=== PATIENT | female | born 1965 | race Caucasian/White ===

== ENCOUNTER 2020-07-12 11:26 | Observation (INO) ==
[2020-07-12] MEDS ORDERED: Ondansetron 4 MG/2 ML VIAL IVP ONE (11:50)
[2020-07-12] MEDS ORDERED: Isovue-370 500 ML BOTTLE IVP ONE (11:52)
[2020-07-12 12:05] LABS: Basophils % 0.5 %; Eosinophils # 0.4 K/mcL (0.0-0.6); Eosinophils % 4.5 %; Hematocrit 47.5 % (35.3-44.9); Hemoglobin 15.1 g/dL (11.5-15.4); Immature Granulocytes % 0.4 % (0-4); Lymphocytes # 1.3 K/mcL (0.6-4.6); Lymphocytes % 16.2 %; Mean Corpuscular HGB Conc 31.8 g/dL (31.6-35.5); Mean Corpuscular Hemoglobin 28.5 pg (28.0-33.3); Mean Corpuscular Volume 89.6 fL (83.0-100.0); Mean Platelet Volume 8.8 fL (9.4-12.4); Monocytes # 0.5 K/mcL (0.0-1.3); Monocytes % 5.7 %; Neutrophils # 5.7 K/mcL (1.6-8.9); Platelet Count 283 K/mcL (140-400); Segmented Neutrophils % 72.7 %; White Blood Count 7.8 K/mcL (4.3-11.1)
[2020-07-12] MEDS: 0.9 % Sodium Chloride 1,000 ML IVC SCH (12:16)
[2020-07-12 12:28] LABS: BUN/Creatinine Ratio 18 (6-26); Blood Urea Nitrogen 14 mg/dL (6-20); Calcium 9.6 mg/dL (8.6-10.3); Carbon Dioxide 26 mEq/L (23-29); Chloride 102 mEq/L (98-107); Glucose 102 mg/dL (70-105); Magnesium 2.4 mg/dL (1.6-2.6); Osmolality,Calculated 281 (280-300); Potassium 4.1 mEq/L (3.5-5.1); Sodium 135 mEq/L (136-145); Troponin I < 0.03 ng/mL (< 0.04); eGFR For African Americans > 60 (> 60); eGFR For Non-African Americans > 60 (> 60)
[2020-07-12 12:41] LABS: Thyroid Stimulating Hormone 0.905 mcIU/mL (0.340-5.600)
[2020-07-12 13:08] LABS: Bilirubin,Urine Negative (Negative); Blood,Urine Negative (Negative); Clarity,Urine Clear (Clear); Color,Urine Light-Yellow (Yellow); Glucose,Urine (UA) Normal (Normal); Ketones,Urine Negative (Negative); Leukocyte Esterase,Urine Negative (Negative); Nitrite,Urine Negative (Negative); PH,Urine 7.5 pH Units (5.0-8.0); Protein,Urine Trace mg/dL (Neg-Trace)
[2020-07-12] MEDS ORDERED: Aspirin 81 MG TAB.CHEW PO STA (14:31)
[2020-07-12] MEDS ORDERED: Ondansetron 4 MG/2 ML VIAL IVP PRN (15:43)
[2020-07-12] MEDS ORDERED: Naloxone 0.4 MG/ML INJ IVP PRN (15:43)
[2020-07-12 16:07] LABS: Chol/HDL Ratio 3.5 (0-4.9); Cholesterol 152 mg/dL (< 200); HDL Cholesterol 44 mg/dL (40-59); LDL Cholesterol,Calculated 86 mg/dL (< 100); Triglycerides 109 mg/dL (< 150)
[2020-07-12] MEDS ORDERED: Perflutren Lipid Microsphere 1.3 ML in 0.9 % Sodium Chloride 8.7 ML IVP PRN (16:25)
[2020-07-12] MEDS: Famotidine 20 MG TABLET PO SCH (20:14)
[2020-07-12] MEDS: Acetaminophen 325 MG TABLET PO PRN (23:08)
[2020-07-13] MEDS: 0.9 % Sodium Chloride 1,000 ML IVC SCH ×4 (00:13→21:15)
[2020-07-13 00:46] LABS: Hematocrit 41.4 % (35.3-44.9); Mean Corpuscular HGB Conc 31.9 g/dL (31.6-35.5); Mean Corpuscular Hemoglobin 28.4 pg (28.0-33.3); Mean Platelet Volume 8.9 fL (9.4-12.4); Platelet Count 245 K/mcL (140-400); Red Blood Count 4.65 M/mcL (3.82-4.97); Red Cell Distribution Width 12.9 % (11.5-14.5); White Blood Count 7.5 K/mcL (4.3-11.1)
[2020-07-13 00:50] LABS: INR 1.1; Prothrombin Time 13.1 Seconds (9.4-12.1)
[2020-07-13 00:52] LABS: Activated Partial Thrombo Time 30.9 Seconds (26.0-36.0); Hemoglobin 13.2 g/dL (11.5-15.4)
[2020-07-13 01:00] LABS: BUN/Creatinine Ratio 16 (6-26); Blood Urea Nitrogen 13 mg/dL (6-20); Carbon Dioxide 29 mEq/L (23-29); Chloride 104 mEq/L (98-107); Glucose 127 mg/dL (70-105); Osmolality,Calculated 286 (280-300); Potassium 4.2 mEq/L (3.5-5.1); Sodium 137 mEq/L (136-145); eGFR For African Americans > 60 (> 60); eGFR For Non-African Americans > 60 (> 60)
[2020-07-13 03:50] LABS: Estimated Average Glucose 91 mg/dl; Hemoglobin A1C 4.8 %
[2020-07-13] MEDS: Acetaminophen 325 MG TABLET PO PRN ×2 (07:58→19:00)
[2020-07-13] MEDS: Aspirin Enteric Coated 81 MG Tablet PO SCH (07:58)
[2020-07-13] MEDS: Famotidine 20 MG TABLET PO SCH (07:58)
[2020-07-13] MEDS ORDERED: Famotidine 20 MG TABLET PO PRN (08:38)
[2020-07-13] MEDS ORDERED: lisinopriL 5 MG TABLET PO SCH (09:00)
[2020-07-13 14:37] LABS: Creatine Kinase 59 Units/L (30-223); Lactate Dehydrogenase 154 Units/L (140-271)
[2020-07-13] MEDS: *HR* Heparin 5,000 UNIT/ML VIAL SQ SCH (17:56)
[2020-07-14] MEDS: 0.9 % Sodium Chloride 1,000 ML IVC SCH (03:07)
[2020-07-14] MEDS: *HR* Heparin 5,000 UNIT/ML VIAL SQ SCH (07:42)
[2020-07-14 07:44] VITALS: BP 140/88
[2020-07-14] MEDS: Aspirin Enteric Coated 81 MG Tablet PO SCH (08:05)
[2020-07-14] MEDS: Acetaminophen 325 MG TABLET PO PRN (08:05)
[2020-07-14] MEDS ORDERED: Cyanocobalamin (B-12) 1,000 MCG TABLET PO SCH (09:00)
[2020-07-18 14:09] LABS: FACV Specimen WHOLE BLOOD
[2020-07-18 14:30] LABS: Fac V Leiden R506Q Mut Result NEGATIVE
== END 2020-07-14 10:18 | disposition home or self-care (01) ==
LOC: EMEROOARM 11:26 → 3BNU 11:26 → SUATTDRO 14:32 → 3BNU 14:39
PROVIDERS: ADMIT Family Medicine; ATTEND Internal Medicine